=== PATIENT | male | born 1950 | race American Indian/Alaskan Native ===

== ENCOUNTER 2017-04-23 19:27 | Inpatient (IN) | payer MEDICARE ==
--- NOTE | 2017-04-23 21:06 | XRay Report ---
FINAL REPORT PROCEDURE: XR CHEST 1V AP TECHNIQUE: Chest radiograph anteroposterior view. CPT 07890 HISTORY: Shortness of breath COMPARISON: No prior studies are available for comparison. FINDINGS: Heart: Normal. Mediastinum/Vessels: Normal contour. Lungs/Pleural space: No infiltrate, effusion, or pneumothorax. Bony thorax: No acute osseous abnormality. Life support devices: None. IMPRESSION: No radiographic evidence of acute cardiopulmonary abnormality.
[2017-04-23 21:08] LABS: Basophils % (Auto) 1.1 % (0.0-1.8); Eosinophils % (Auto) 1.3 % (0.0-4.3); Hemoglobin 12.3 gm/dl (11.8-15.2); Mean Corpuscular HGB Conc 33 % (32-34); Mean Corpuscular Hemoglobin 28 pg (28-32); Mean Corpuscular Volume 87 fl (84-94); Platelet Count 256 K/mm3 (140-440); Red Blood Count 4.35 M/mm3 (3.65-5.03); Red Cell Distribution Width 14.8 % (13.2-15.2)
[2017-04-23 21:18] LABS: Anion Gap 18 mmol/L; BUN/Creatinine Ratio 12; Blood Urea Nitrogen 16 mg/dL (9-20); Calcium 8.6 mg/dL (8.4-10.2); Carbon Dioxide 25 mmol/L (22-30); Chloride 105.8 mmol/L (98-107); Glucose 139 mg/dL (75-100); Potassium 4.4 mmol/L (3.6-5.0); Sodium 144 mmol/L (137-145)
[2017-04-23] MEDS ORDERED: LEVAQUIN 750MG/150ML 750 MG/150 ML BAG IV ONE (21:28)
[2017-04-23] MEDS ORDERED: CLEOCIN 600 MG/50 mL 600 MG/50 ML BAG IV ONE (21:30)
--- NOTE | 2017-04-23 21:38 | Emergency Department Report ---
ED Shortness of Breath HPI - General Chief Complaint: Dyspnea/Respdistress Stated Complaint: BRAN Time Seen by Provider: 04/23/17 21:21 Source: EMS Mode of arrival: Stretcher Limitations: Language Barrier (aphasic), Physical Limitation - History of Present Illness Initial Comments: 66 yo male s/p ccva and is aphasic on puree diet found choking on a hot dog at the snf. long term suctioned 300ml of fluid from oralpharynx and ems suctioned him as well. about 100cc suctioned her my nurse at this hospital MD Complaint: shortness of breath, cough (pt was choking) -: Sudden Pain Scale: 0 Known History Of: diabetes - Related Data Home Oxygen Therapy: No Home Oxygen Amount: other (none) Previous Rx's Medication Instructions Recorded Last Taken Type Aspirin [Aspirin BABY CHEW TAB] 81 mg PO QDAY #30 tab.chew 01/22/16 Unknown Rx AtorvaSTATin [Lipitor] 10 mg PO QHS #30 tablet 01/22/16 Unknown Rx Ergocalciferol [Vitamin D2] 50,000 unit PO QWEEK #7 capsule 01/22/16 Unknown Rx amLODIPine [Norvasc] 5 mg PO DAILY #30 tablet 01/22/16 Unknown Rx traMADol [Ultram 50 MG tab] 100 mg PO BID #30 tablet 01/22/16 Unknown Rx Allergies Allergy/AdvReac Type Severity Reaction Status Date / Time Penicillins Allergy Hives Verified 01/14/16 14:23 ED Review of Systems ROS: Stated complaint: BRAN Other details as noted in HPI ED Past Medical Hx - Past Medical History Hx Hypertension: Yes Hx CVA: Yes (right sided paralysis) Hx Diabetes: Yes Hx Psychiatric Treatment: Yes (Schizophrenia, anxiety,) Additional medical history: Glaucoma,Anemia, - Surgical History Additional Surgical History: L arm, - Social History Smoking Status: Never Smoker Substance Use Type: None - Medications Home Medications: Home Medications Medication Instructions Recorded Confirmed Last Taken Type Aspirin [Aspirin BABY CHEW TAB] 81 mg PO QDAY #30 tab.chew 01/22/16 Unknown Rx AtorvaSTATin [Lipitor] 10 mg PO QHS #30 tablet 01/22/16 Unknown Rx Ergocalciferol [Vitamin D2] 50,000 unit PO QWEEK #7 capsule 01/22/16 Unknown Rx amLODIPine [Norvasc] 5 mg PO DAILY #30 tablet 01/22/16 Unknown Rx traMADol [Ultram 50 MG tab] 100 mg PO BID #30 tablet 01/22/16 Unknown Rx ED Physical Exam - General Limitations: Language Barrier (aphasic), Physical Limitation General appearance: alert, in distress - Head Head exam: Present: atraumatic, normocephalic - Eye Eye exam: Present: EOMI. Absent: scleral icterus, conjunctival injection - ENT ENT exam: Present: mucous membranes moist - Neck Neck exam: Present: normal inspection, full ROM - Respiratory Respiratory exam: Present: decreased breath sounds - Cardiovascular Cardiovascular Exam: Present: regular rate, normal rhythm, normal heart sounds - GI/Abdominal GI/Abdominal exam: Present: soft. Absent: tenderness, guarding, rebound - Rectal Rectal exam: Present: deferred - Extremities Exam Extremities exam: Present: normal inspection - Back Exam Back exam: Present: normal inspection - Neurological Exam Neurological exam: Present: alert - Psychiatric Psychiatric exam: Present: normal affect, normal mood - Skin Skin exam: Present: warm, dry, intact, normal color ED Course Vital Signs 04/23/17 04/23/17 19:46 20:16 Temperature 99.7 F H 99.7 F H Pulse Rate 111 H 95 H Respiratory 20 22 Rate Blood Pressure 144/85 144/86 O2 Sat by Pulse 74 L 96 Oximetry ED Medical Decision Making - Lab Data Result diagrams: 04/23/17 20:44 04/23/17 20:44 - EKG Data EKG shows normal: sinus rhythm, axis, intervals, QRS complexes (LVH) Rate: tachycardia - EKG Data When compared to previous EKG there are: changes noted (TACHYCARDIA) - Radiology Data Radiology results: report reviewed (NO ACUTE CHANGES) Critical Care Time: Yes Critical care time in (mins) excluding proc time.: 30 Critical care attestation.: If time is entered above; I have spent that time in minutes in the direct care of this critically ill patient, excluding procedure time. 30 Critical Care Time: 30MIN ED Disposition Clinical Impression: Acute dyspnea Aspiration pneumonia Qualifiers: Aspiration pneumonia type: due to gastric secretions Laterality: right Lung location: middle lobe of lung Qualified Code(s): J69.0 - Pneumonitis due to inhalation of food and vomit Disposition: OP ADMIT IP TO THIS HOSP Is pt being admited?: Yes Does the pt Need Aspirin: No Condition: Serious Instructions: Bacterial Pneumonia (ED) Referrals: GINETTE PÉREZ MD [Primary Care Provider] - 3-5 Days Time of Disposition: 23:02 (CASE REVIEWED WITH DR LYNN AND HE HAS ACCEPTED THE PT FOR ADMISSION)
--- NOTE | 2017-04-23 22:37 | XRay Report ---
FINAL REPORT PROCEDURE: XR CHEST 1V TECHNIQUE: Chest radiograph lateral view. CPT 99758 HISTORY: sob/lateral view COMPARISON: AP view dated 04/23/2017 FINDINGS: Cross-table lateral view of the chest is submitted. No layering pleural effusion is seen. No pulmonary infiltrates are identified. There is osteopenia. IMPRESSION: No pulmonary infiltrate or effusion is seen.
[2017-04-23 23:51] LABS: ISTAT Base Excess 0; ISTAT HCO3 24.4; ISTAT PCO2 39.3 (35-45); ISTAT PH 7.402 (7.35-7.45); ISTAT PO2 62 (80-105); ISTAT SO2 91; ISTAT TCO2 26
[2017-04-23] MEDS ORDERED: NACL 0.9% 1000 ML 1,000 ML IV ONE (23:52)
[2017-04-23] MEDS ORDERED: TYLENOL PO PRN (23:58)
[2017-04-23] MEDS ORDERED: ZOFRAN IV PRN (23:58)
[2017-04-24 00:15] LABS: Bilirubin,Urine NEG (Negative); Blood,Urine NEG (Negative); Ketones,Urine NEG (Negative); Leukocyte Esterase,Urine NEG (Negative); Mucus,Urine FEW /HPF; Nitrite,Urine NEG (Negative)
[2017-04-24] MEDS ORDERED: TYLENOL PR PRN (00:48)
[2017-04-24] MEDS ORDERED: DULCOLAX PR PRN (00:49)
[2017-04-24] MEDS ORDERED: D50W (25GM) Vial IV PRN (01:37)
--- NOTE | 2017-04-24 02:36 | History and Physical Report ---
CHIEF COMPLAINT: difficulty in breathing. Other complaint includes choking sensation. HISTORY OF PRESENT ILLNESS: The patient is a 66-year-old male who stays at skilled nursing and who was noted by the skilled nursing staff to be choking on a hot dog in the skilled nursing. The staff embarked on suctioning of patient's oropharynx and suctioned out about 300 mL of fluid. EMS was called and also EMS suctioned the patient en route to the hospital. When the patient got to the Emergency Room, the Emergency Room nurse was able to suction out about 100 mL of fluid. There was also no history of cough. No history of fever or chills. There is also no history of chest pain, no history of dizziness. PAST MEDICAL HISTORY: Pertinent for hypertension, cerebrovascular accident with right-sided paralysis, diabetes mellitus, schizophrenia, anxiety, glaucoma, anemia, aphasia. PAST SURGICAL HISTORY: Left arm surgery. FAMILY HISTORY: Noncontributory. SOCIAL HISTORY: The patient stays at a skilled nursing, does not smoke, does not drink alcohol and does not use illicit drugs. MEDICATIONS: The patient is on the following medications: Aspirin, atorvastatin, ergocalciferol or vitamin D2, amlodipine 5 mg by mouth daily, tramadol 100 mg by mouth twice daily. Atorvastatin 10 mg by mouth every night and aspirin 81 mg daily and vitamin D2 50,000 units every week. ALLERGIES: THE PATIENT IS ALLERGIC TO PENICILLIN. REVIEW OF SYSTEMS: CONSTITUTIONAL: There is no fever, no chills, no diaphoresis. HEENT: There is no headache or sore throat. CARDIOVASCULAR: There is no chest pain, orthopnea. RESPIRATORY: Shortness of breath is noted. No Cough is noted. GASTROINTESTINAL: There is no nausea, no vomiting, no abdominal pain, diarrhea or constipation, but there was choking sensation. NEUROLOGICAL SYSTEM: There is no numbness, no dizziness, no altered mental status. MUSCULOSKELETAL SYSTEM: There is no joint pain or swelling. DERMATOLOGICAL SYSTEM: There is no skin rash or itching. GENITOURINARY: There is no dysuria, hematuria, or flank pain. Rest of system review is normal. PHYSICAL EXAMINATION: GENERAL: At the time of exam, the patient was found to be alert, oriented to person and not in acute distress. VITAL SIGNS: Shows normal temperature, pulse of 90, respirations 20, blood pressure 146/87, O2 sat of 96% on oxygen. HEENT: Showed pupils to be equal, round, reactive to light and accommodation. Extraocular muscles are intact. Oral mucosa looks normal. There are no food contents in the mouth. NECK: Supple with no JVD or carotid bruit. CARDIOVASCULAR: Showed normal first and second heart sounds with no gallops or murmur. RESPIRATORY SYSTEM: Show good air entry on both sides of the lung with no abnormal breath sounds. GASTROINTESTINAL SYSTEM: Show abdomen to be full, soft, nontender with no organomegaly or rigidity. NEUROLOGIC: Showed no focal deficit. MUSCULOSKELETAL: Show no joint swelling or tenderness. DERMATOLOGICAL: Show no skin rash. GENITOURINARY: Showing no costovertebral angle tenderness. PERTINENT LABORATORY AND IMAGING STUDIES: The patient has CBC done that came back unremarkable except for elevated segmented neutrophils of 79.4% in the differential. The patient's D-dimer was high with a value of 10,000. ABG shows a normal pH, normal pCO2 with low pO2 of 62 and O2 sat of 91% on FIO2 of 4. The patient's chemistry came back unremarkable except for elevated lactic acid level of 2.2. The patient's urinalysis was unremarkable. IMAGING STUDIES: The patient had chest x-ray done that was unremarkable and showed no acute cardiopulmonary lesion. DIAGNOSES: 1. Aspiration pneumonia. 2. Sepsis. 3. Elevated D-Dimer PLAN: The patient will be admitted to medical floor on telemetry. We will have 1 liter of normal saline given bolus and will have normal saline continued at 150 mL an hour after bolus infusion. The patient will continue IV Levaquin 750 mg daily, having received the first dose and also being allergic to PENICILLIN. The patient will have speech therapy consult to test the patient for swallowing capabilities. The patient will be on heparin 5000 units subcutaneously q. 12 for DVT prophylaxis and will be on Tylenol 650 mg per rectum every 4 hours for fever and headache. The patient will also be on Dulcolax suppository per rectum daily as needed for constipation. The patient will continue on clindamycin 600 mg IV q. 12 hours for the treatment of food for gram-negative organisms in the aspiration pneumonia. The patient will be on IV Zofran 4 mg every 8 hours for nausea and vomiting and will continue his home medications as shown in the medication reconciliation section. The patient wants to be on oxygen by nasal cannula 2 liters per minute, which will be better titrated to keep O2 sat above 92%.Patient will have CT angiogram of chest done this morning because of elevated D-Dimer with shortness of breath. JOB# [id number] OCN/ANTHONY SILVESTRE
[2017-04-24] MEDS: NACL 0.9% 1000 ML 1,000 ML IV SCH ×2 (04:53→16:46)
[2017-04-24] MEDS ORDERED: NACL ONE (06:19)
[2017-04-24] MEDS: CLEOCIN 600 MG/50 mL 600 MG/50 ML BAG IV SCH ×3 (06:31→22:54)
[2017-04-24] MEDS ORDERED: VITAMIN D2 PO SCH (10:00)
[2017-04-24] MEDS ORDERED: NORVASC PO SCH (10:00)
[2017-04-24] MEDS ORDERED: BABY ASPIRIN PO SCH (10:00)
[2017-04-24] MEDS ORDERED: ULTRAM PO SCH (10:00)
--- NOTE | 2017-04-24 12:37 | Progress Note ---
Assessment and Plan Assessment and plan: Patient is a 66 yo man with a history of glaucoma, anemia, schizophrenia, hypertension, dyslipidemia, non-insulin diabetes mellitus, CVA with right-sided hemiparesis and aphasia who presented with choking on a hot dog, suctioned 300ml of fluid from oral pharynx and ems suctioned him as well as about 100cc suctioned at this hospital per ED. chest x-ray showed no acute findings. D- dimer greater than 10,000 we'll get a CTA of the chest -Sepsis due to aspiration pneumonitis, poa bilateral chest x-ray too early to apple picker infiltrate: treat with abx -Aspiration pneumonia see above -Dysphagia, OP: Nothing by mouth, modified barium pending if he fails consult GI -Elevated d-dimer: Check CT chest -Acute hypoxic respiratory failure pO2 only 62 even on 4 L oxygen: Continue treated on oxygen and antibiotics, hold off IV fluids until CTA is done -DVT prophylaxis: sq heparin It appears patient is NOT from the skilled nursing as stated in ED records and h-n- p per case management, Jaycee. It appears he was at home with hospice Corey per Jaycee. To clarify, i called Jud at @ 12:45pm pm and no answer. I spoke with at bedside and he was at [facility] temporary for 5 days. She put him in [facility] last for 5 day hold, he was to come home tomorrow. is upset that they gave him a hotdog when she told them he is on pureed diet. At home he is in hospice with Corey. believes the hotdog is still lodge in his throat, so I will consult GI pcp: [facility] History Interval history: Patient seen and examined. Nonverbal. Chart reviewed. No new issues reported to me. Overnight uneventful Hospitalist Physical - Physical exam Narrative exam: GEN: thin frail, bmi 24, NAD, AWAKE, ALERT, nonverbal HEENT: NCAT, EOMI, PERRL, OP Clear NECK: supple, no adenopathy, no thyromegaly, no JVD CVS/HEART: RRR, NORMAL S1S2, NO JVD, pulses present bilaterally CHEST/LUNGS: CTA B, Symmetrical chest expansion, good air entry bilaterally GI/Abdomen: soft, NTND, good bowel sounds, no guarding or rebound /Bladder: no suprapubic tenderness, no CVA or paraspinal tenderness EXT/Skin: no c/c/e, no obvious rash MSK: right arm doesn't move much/strenght is less than 1/5, right leg is 2/5 Neuro: CN 2-12 grossly intact, no new focal deficits Psych: calm - Constitutional Vitals: Temp Pulse Resp BP Pulse Ox 99.4 F 94 H 98 H 161/92 92 04/24/17 05:13 04/24/17 05:13 04/24/17 05:13 04/24/17 05:13 04/24/17 08:28 Results - Labs CBC & Chem 7: 04/23/17 20:44 04/23/17 20:44 Labs: Laboratory Last Values WBC 8.0 K/mm3 (4.5-11.0) 04/23/17 20:44 RBC 4.35 M/mm3 (3.65-5.03) 04/23/17 20:44 Hgb 12.3 gm/dl (11.8-15.2) 04/23/17 20:44 Hct 38.0 % (35.5-45.6) 04/23/17 20:44 MCV 87 fl (84-94) 04/23/17 20:44 MCH 28 pg (28-32) 04/23/17 20:44 MCHC 33 % (32-34) 04/23/17 20:44 RDW 14.8 % (13.2-15.2) 04/23/17 20:44 Plt Count 256 K/mm3 (140-440) 04/23/17 20:44 Lymph % (Auto) 14.8 % (13.4-35.0) 04/23/17 20:44 [place] % (Auto) 3.4 % (0.0-7.3) 04/23/17 20:44 Eos % (Auto) 1.3 % (0.0-4.3) 04/23/17 20:44 Baso % (Auto) 1.1 % (0.0-1.8) 04/23/17 20:44 Lymph # 1.2 K/mm3 (1.2-5.4) 04/23/17 20:44 [place] # 0.3 K/mm3 (0.0-0.8) 04/23/17 20:44 Eos # 0.1 K/mm3 (0.0-0.4) 04/23/17 20:44 Baso # 0.1 K/mm3 (0.0-0.1) 04/23/17 20:44 Seg Neutrophils % 79.4 % (40.0-70.0) H 04/23/17 20:44 Seg Neutrophils # 6.3 K/mm3 (1.8-7.7) 04/23/17 20:44 D-Dimer > 99264 ng/mlDDU (0-234) H 04/23/17 23:14 POC ABG pH 7.402 (7.35-7.45) 04/23/17 23:48 POC ABG pCO2 39.3 (35-45) 04/23/17 23:48 POC ABG pO2 62 (80-105) L 04/23/17 23:48 POC ABG HCO3 24.4 04/23/17 23:48 POC ABG Total CO2 26 04/23/17 23:48 POC ABG O2 Sat 91 04/23/17 23:48 POC ABG Base Excess 0 04/23/17 23:48 FiO2 4 % 04/23/17 23:48 Sodium 144 mmol/L (137-145) 04/23/17 20:44 Potassium 4.4 mmol/L (3.6-5.0) 04/23/17 20:44 Chloride 105.8 mmol/L (98-107) 04/23/17 20:44 Carbon Dioxide 25 mmol/L (22-30) 04/23/17 20:44 Anion Gap 18 mmol/L 04/23/17 20:44 BUN 16 mg/dL (9-20) 04/23/17 20:44 Creatinine 1.3 mg/dL (0.8-1.5) 04/23/17 20:44 Estimated GFR > 60 ml/min 04/23/17 20:44 BUN/Creatinine Ratio 12 % 04/23/17 20:44 Glucose 139 mg/dL (75-100) H 04/23/17 20:44 POC Glucose 166 (70-105) H 04/24/17 07:33 Lactic Acid 2.20 mmol/L (0.7-2.0) H* 04/23/17 21:36 Calcium 8.6 mg/dL (8.4-10.2) 04/23/17 20:44 Troponin T < 0.010 ng/mL (0.00-0.029) 04/23/17 20:44 C-Reactive Protein 0.60 mg/dL (0.00-1.30) 04/23/17 21:36 NT-Pro-B Natriuret Pep 152.3 pg/mL (0-900) 04/23/17 21:36 Urine Color Yellow (Yellow) 04/23/17 23:19 Urine Turbidity Clear (Clear) 04/23/17 23:19 Urine pH 5.0 (5.0-7.0) 04/23/17 23:19 Ur Specific [place] 1.027 (1.003-1.030) 04/23/17 23:19 Urine Protein 100 mg/dl mg/dL (Negative) 04/23/17 23:19 Urine Glucose (UA) Neg mg/dL (Negative) 04/23/17 23:19 Urine Ketones Neg mg/dL (Negative) 04/23/17 23:19 Urine Blood Neg (Negative) 04/23/17 23:19 Urine Nitrite Neg (Negative) 04/23/17 23:19 Urine Bilirubin Neg (Negative) 04/23/17 23:19 Urine Urobilinogen 2.0 mg/dL (<2.0) 04/23/17 23:19 Ur Leukocyte Esterase Neg (Negative) 04/23/17 23:19 Urine WBC (Auto) 1.0 /HPF (0.0-6.0) 04/23/17 23:19 Urine RBC (Auto) 2.0 /HPF (0.0-6.0) 04/23/17 23:19 U Epithel Cells (Auto) < 1.0 /HPF (0-13.0) 04/23/17 23:19 Hyaline Casts 5 /LPF 04/23/17 23:19 Urine Mucus Few /HPF 04/23/17 23:19
[2017-04-24] MEDS: HEPARIN SUB-Q SCH ×2 (14:33→23:43)
[2017-04-24] MEDS ORDERED: XYLOCAINE MPF 2% ONE (16:00)
[2017-04-24] MEDS ORDERED: ROBINUL ONE (16:00)
[2017-04-24] MEDS ORDERED: WATER FOR IRRIG STERILE IR ONE (16:38)
[2017-04-24] MEDS ORDERED: DIPRIVAN 10 MG/ML IV ONE (16:45)
--- NOTE | 2017-04-24 16:45 | Gastroenterology Consultation ---
History of Present Illness - Reason for Consult Consult date: 04/24/17 Food impaction Requesting physician: DENISE PAUL - History of Present Illness The patient is a 66 yo male who was in respite at [facility] (normally at home with Jud under home hospice), who came to the ER from [facility] for a possible aspiration event. He has a hx of CVA and possible dementia, and is on a chronic chopped diet. While he was in respite care for the last 5 days, he apparently ingested a hot dog, and was noted to have coughing and inability to swallow secretions or fluids. He has a pOx of 95% now, but was hypoxic on admit , and there was a concern for aspiration pneumonitis. His WBC is normal, and he is afebrile. He denies nausea and wants to eat. He has no blood in his secretions. Per the , he was impacted on a biscuit about 2 months ago, and had to undergo a disimpaction in the [place] ER. Past History Past Medical History: COPD (on home O2 "PRN" per ), hypertension, stroke, other (Possible schizophrenia per old notes) Past Surgical History: Other (shoulder surgery) Social history: lives with family, smoking (Former smoker, none since CVA). denies: alcohol abuse, prescription drug abuse Family history: no significant family history Medications and Allergies Allergies Allergy/AdvReac Type Severity Reaction Status Date / Time Penicillins Allergy Hives Verified 01/14/16 14:23 Home Medications Medication Instructions Recorded Confirmed Last Taken Type Aspirin [Aspirin BABY CHEW TAB] 81 mg PO QDAY #30 tab.chew 01/22/16 04/24/17 Unknown Rx AtorvaSTATin [Lipitor] 10 mg PO QHS #30 tablet 01/22/16 04/24/17 Unknown Rx Ergocalciferol [Vitamin D2] 50,000 unit PO QWEEK #7 capsule 01/22/16 04/24/17 Unknown Rx amLODIPine [Norvasc] 5 mg PO DAILY #30 tablet 01/22/16 04/24/17 Unknown Rx traMADol [Ultram 50 MG tab] 100 mg PO BID #30 tablet 01/22/16 04/24/17 Unknown Rx Active Meds: Active Medications Acetaminophen (Tylenol) 650 mg MT Q4H PRN PRN Reason: For Pain/Fever/Headache Bisacodyl (Dulcolax) 10 mg MT DAILY PRN PRN Reason: Constipation Ergocalciferol (Vitamin D2) 50,000 unit PO Mo JOVANNI Last Admin: 04/24/17 12:44 Dose: Not Given Heparin Sodium (Porcine) (Heparin) 5,000 unit SUB-Q Q12HR JOVANNI Last Admin: 04/24/17 14:33 Dose: 5,000 unit Levofloxacin/Dextrose (Levaquin 750mg/150ml) 750 mg in 150 mls @ 100 mls/hr IV DAILY@2200 JOVANNI Sodium Chloride (Nacl 0.9% 1000 Ml) 1,000 mls @ 150 mls/hr IV DIRECT JOVANNI Last Admin: 04/24/17 04:53 Dose: 150 mls/hr Clindamycin HCl (Cleocin 600 Mg/50 Ml) 600 mg in 50 mls @ 100 mls/hr IV Q8HR JOVANNI PRN Reason: Protocol Last Admin: 04/24/17 06:31 Dose: 100 mls/hr Ondansetron HCl (Zofran) 4 mg IV Q8H PRN PRN Reason: Nausea And Vomiting Review of Systems - Review of Systems ROS unobtainable: due to mental status Exam - Constitutional Vital Signs: Temp Pulse Resp BP Pulse Ox 99.4 F 94 H 98 H 161/92 92 04/24/17 05:13 04/24/17 05:13 04/24/17 05:13 04/24/17 05:13 04/24/17 08:28 General appearance: mild distress (Mild respiratory discomfort due to secretions /cough) - EENT Eyes: PERRL, EOM intact ENT: hearing intact, clear oral mucosa, poor dentition, no thrush - Neck Neck: supple, normal ROM - Respiratory Respiratory effort: labored (Very minimal increase WOB) Respiratory: bilateral: rhonchi (Mild) - Cardiovascular Rhythm: regular Heart Sounds: Present: S1 & S2 Extremities: no ischemia, No edema - Gastrointestinal General gastrointestinal: Present: soft, non-tender, non-distended - Integumentary Integumentary: Present: clear, warm, dry - Neurologic Neurological: right side weakness, other (Unable to speak, but able to follow appropriate commands) - Labs CBC & Chem 7: 04/23/17 20:44 04/23/17 20:44 Lab Results: Laboratory Results - last 24 hr 04/24/17 04/24/17 07:33 12:30 POC Glucose 166 H 136 H Assessment and Plan - Patient Problems (1) Foreign body alimentary tract Current Visit: Yes Status: Acute Qualifiers: Encounter type: E Plan to address problem: - Possible food impaction in the esophagus per . - See dictated EGD report today. - Discussed anaesthesia with team (CHARLINE LEON) prior to procedure.
--- NOTE | 2017-04-24 16:59 | Anesthesia Consultation ---
Anesthesia Consult and Med Hx Date of service: 04/24/17 - Airway Anesthetic Teeth Evaluation: Edentulous ROM Head & Neck: Adequate Mental/Hyoid Distance: Adequate Mallampati Class: Class II Intubation Access Assessment: Probably Good - Pulmonary Exam CTA: Yes - Cardiac Exam Cardiac Exam: RRR - Pre-Operative Health Status ASA Pre-Surgery Classification: ASA4 Proposed Anesthetic Plan: MAC - Pulmonary Hx Respiratory Symptoms: Yes (sat 96% on 3L NC) Home Oxygen Therapy: No - Cardiovascular System Hx Hypertension: Yes - Central Nervous System CVA: Yes (2 years ago. right sided weakness)
--- NOTE | 2017-04-24 16:59 | Anesthesia Day of Surgery ---
Anesthesia Day of Surgery - Day of Surgery Patient Examined: Yes Patient H&P Reviewed: Yes Patient is NPO: Yes
--- NOTE | 2017-04-24 17:14 | Post Operative Note ---
Pre-op diagnosis: Food Impaction Post-op diagnosis: same Findings: Impacted meat fragment at UES (removed via the mouth with finger) Procedure: EGD with food impaction Anesthesia: MAC Surgeon: NHI MCGILL Estimated blood loss: none Pathology: none Specimen disposition: other (N/A) Condition: stable Disposition: floor (Recs: 1. OK to resume chopped diet. 2. OK to d/c home when O2 sats at baseline and swallowing without issue.)
--- NOTE | 2017-04-24 19:41 | Cat Scan Report ---
FINAL REPORT PROCEDURE: CT ANGIO CHEST TECHNIQUE: Computerized axial tomographic angiography of the chest and pulmonary arteries was performed after the IV injection of iodinated nonionic contrast. The image data was postprocessed using maximum intensity projection (MIP) and 2-dimensional multiplanar reformatted (MPR) techniques. The examination is specifically tailored to the evaluation of the pulmonary arteries per clinical request. HISTORY: Short of breath 786.09, chest pain 786.50, SHORTNESS OF BREATH WITH ELEVATED D-DIMER COMPARISON: Radiograph 04/23/2017 FINDINGS: Heart and pericardium: No pericardial effusion or thickening. Thoracic aorta: There is mild atherosclerotic calcification of the aorta. There is atherosclerotic calcification and plaque of the proximal left subclavian artery. Pulmonary vasculature: Streak artifact obscures right perihilar vessels. No linear intraluminal filling defects are seen to suggest pulmonary emboli. Lymph nodes: No enlarged thoracic lymph nodes. Lungs: There are patchy airspace opacities in the right upper lobe abutting the fissure. Airspace infiltrates are seen in the posterior right middle lobe. Airspace consolidation is seen in bilateral posterior lower lobes. Pleural space: No effusion, thickening, or pneumothorax. Musculoskeletal structures: No significant abnormality. Upper abdominal structures: No significant abnormality. IMPRESSION: No evidence of pulmonary emboli. Bilateral pulmonary airspace opacities are concerning for pneumonia.
--- NOTE | 2017-04-24 20:37 | Operative Report ---
PROCEDURE PERFORMED: Esophagogastroduodenoscopy with food disimpaction. PREOPERATIVE DIAGNOSIS: Food impaction in the esophagus. POSTOPERATIVE DIAGNOSES: Food impaction in the esophagus. ENDOSCOPIST: Mino Workman MD. INSTRUMENT: Chase[employer] video endoscope. MEDICATIONS: MAC anesthesia by Anesthesia Services. COMPLICATIONS: No apparent complications. ESTIMATED BLOOD LOSS: Minimal. SPECIMENS: None. IMPLANTS: None. COMPLICATIONS: None. ASSISTANTS: None. CONDITION AT COMPLETION: Stable. TECHNIQUE: The patient and his were informed of the risks and benefits of the procedure due to the patient's history of a stroke. His signed the informed consent to proceed. He was placed in left lateral decubitus position. The above sedative medications were given. His vital signs remained stable throughout the procedure. The instrument was advanced from the mouth to the upper esophageal sphincter under direct visualization. At that point, the bowel was insufflated and a large meat impaction was encountered with withdrawing of the endoscope. The meat impaction remained in 1 piece and fell into the oral cavity. We then used our hands to remove the meat impaction. The endoscope was then advanced from the mouth to the second portion of the duodenum under direct visualization, the bowel was insufflated, and the endoscope was slowly withdrawn. FINDINGS: 1. Meat impaction at the upper esophageal sphincter, removed through the oral cavity. 2. Otherwise, normal upper gastrointestinal tract except for small hiatal hernia. RECOMMENDATIONS: 1. Okay to resume a chopped meat diet. 2. Okay to discharge home when oxygen saturations were at his baseline and he is swallowing without issue. JOB# [id number] LEE/NTS
[2017-04-24] MEDS: LEVAQUIN 750MG/150ML 750 MG/150 ML BAG IV SCH (22:58)
[2017-04-25] MEDS: CLEOCIN 600 MG/50 mL 600 MG/50 ML BAG IV SCH ×3 (06:22→23:48)
[2017-04-25 07:14] LABS: Hematocrit 28.5 % (35.5-45.6); Hemoglobin 9.9 gm/dl (11.8-15.2); Mean Corpuscular HGB Conc 35 % (32-34); Mean Corpuscular Hemoglobin 30 pg (28-32); Mean Corpuscular Volume 86 fl (84-94); Platelet Count 186 K/mm3 (140-440); Red Blood Count 3.32 M/mm3 (3.65-5.03); Red Cell Distribution Width 14.7 % (13.2-15.2); White Blood Count 9.5 K/mm3 (4.5-11.0)
[2017-04-25 07:33] LABS: Alanine Aminotransferase 15 units/L (7-56); Albumin 2.6 g/dL (3.9-5); Albumin/Globulin Ratio 0.9 %; Alkaline Phosphatase 55 units/L (35-129); Anion Gap 14 mmol/L; BUN/Creatinine Ratio 13; Blood Urea Nitrogen 16 mg/dL (9-20); Carbon Dioxide 25 mmol/L (22-30); Chloride 107.8 mmol/L (98-107); Glucose 85 mg/dL (75-100); Potassium 3.9 mmol/L (3.6-5.0); Sodium 143 mmol/L (137-145); Total Protein 5.5 g/dL (6.3-8.2)
[2017-04-25 07:48] LABS: Calcium 7.9 mg/dL (8.4-10.2)
[2017-04-25] MEDS: PROTONIX PO SCH (10:31)
[2017-04-25] MEDS: HEPARIN SUB-Q SCH (10:32)
--- NOTE | 2017-04-25 14:38 | Fluoroscopy Report ---
MODIFIED BARIUM SWALLOW History: dysphagia. Findings: Video radiography was provided by the radiologist for speech therapy to assess the swallowing mechanism. Please refer to the formal report by speech therapy. Impression: Successful modified barium swallow.
--- NOTE | 2017-04-25 17:45 | Progress Note ---
Assessment and Plan Assessment and plan: Patient is a 66 yo man with a history of glaucoma, anemia, schizophrenia, hypertension, dyslipidemia, non-insulin diabetes mellitus, CVA with right-sided hemiparesis and aphasia who presented with choking on a hot dog, suctioned 300ml of fluid from oral pharynx and ems suctioned him as well as about 100cc suctioned at this hospital per ED. chest x-ray showed no acute findings. D- dimer greater than 10,000 w a CTA of the chest- NEGATIVE FOR PE. 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 -Elevated d-dimer: NEGATIVE CT. WILL CHECK DOPPLER LOWER EXT PATIENT for DVT -Acute hypoxic respiratory failure pO2 only 62 even on 4 L oxygen: Continue treated on oxygen and antibiotics, hold off IV fluids -DVT prophylaxis: sq heparin - Diet tngt TUBE FEEDS. BAROMETRIC SURGEON OF OUR OFFICE pLAN WAS DISCUSSED WITH patient, YOU CAN DO IS TO SET UP FOLLow up. OwG THEIR SOMEONE IS COMING TO GERT HERE History Interval history: Patient seen and examined today, He is non verbal, spouse is at bedside, but patient follows commands. Nursing reports no overnight event. Hospitalist Physical - Constitutional Vitals: Temp Pulse Resp BP Pulse Ox 97.7 F 67 16 132/80 99 04/25/17 16:47 04/25/17 16:47 04/25/17 16:47 04/25/17 16:47 04/25/17 16:47 General appearance: Present: no acute distress, well-nourished - EENT Eyes: Present: PERRL, EOM intact ENT: hearing intact, clear oral mucosa - Neck Neck: Present: supple, normal ROM - Respiratory Respiratory effort: normal Respiratory: bilateral: CTA (poor respirtory effort) - Cardiovascular Heart Sounds: Present: S1 & S2. Absent: systolic murmur - Extremities Extremities: no ischemia, pulses intact, No edema, normal temperature, normal color, abnormal (ROM, PARALYSIS RIGHT SIDE) Peripheral Pulses: within normal limits - Abdominal General gastrointestinal: soft, non-tender, non-distended, normal bowel sounds - Integumentary Integumentary: Present: clear, warm, dry - Psychiatric Psychiatric: appropriate mood/affect - Neurologic Neurologic: other (MOTOR STRENGHT DEMINISHED RIGHT SIDE) - Allied Health Allied health notes reviewed: nursing Results - Labs CBC & Chem 7: 04/25/17 06:54 04/25/17 06:54 Labs: Laboratory Last Values WBC 9.5 K/mm3 (4.5-11.0) 04/25/17 06:54 RBC 3.32 M/mm3 (3.65-5.03) L 04/25/17 06:54 Hgb 9.9 gm/dl (11.8-15.2) L 04/25/17 06:54 Hct 28.5 % (35.5-45.6) L D 04/25/17 06:54 MCV 86 fl (84-94) 04/25/17 06:54 MCH 30 pg (28-32) 04/25/17 06:54 MCHC 35 % (32-34) H 04/25/17 06:54 RDW 14.7 % (13.2-15.2) 04/25/17 06:54 Plt Count 186 K/mm3 (140-440) 04/25/17 06:54 Lymph % (Auto) 14.8 % (13.4-35.0) 04/23/17 20:44 Archer % (Auto) 3.4 % (0.0-7.3) 04/23/17 20:44 Eos % (Auto) 1.3 % (0.0-4.3) 04/23/17 20:44 Baso % (Auto) 1.1 % (0.0-1.8) 04/23/17 20:44 Lymph # 1.2 K/mm3 (1.2-5.4) 04/23/17 20:44 Archer # 0.3 K/mm3 (0.0-0.8) 04/23/17 20:44 Eos # 0.1 K/mm3 (0.0-0.4) 04/23/17 20:44 Baso # 0.1 K/mm3 (0.0-0.1) 04/23/17 20:44 Seg Neutrophils % 79.4 % (40.0-70.0) H 04/23/17 20:44 Seg Neutrophils # 6.3 K/mm3 (1.8-7.7) 04/23/17 20:44 D-Dimer > 78706 ng/mlDDU (0-234) H 04/23/17 23:14 POC ABG pH 7.402 (7.35-7.45) 04/23/17 23:48 POC ABG pCO2 39.3 (35-45) 04/23/17 23:48 POC ABG pO2 62 (80-105) L 04/23/17 23:48 POC ABG HCO3 24.4 04/23/17 23:48 POC ABG Total CO2 26 04/23/17 23:48 POC ABG O2 Sat 91 04/23/17 23:48 POC ABG Base Excess 0 04/23/17 23:48 FiO2 4 % 04/23/17 23:48 Sodium 143 mmol/L (137-145) 04/25/17 06:54 Potassium 3.9 mmol/L (3.6-5.0) 04/25/17 06:54 Chloride 107.8 mmol/L (98-107) H 04/25/17 06:54 Carbon Dioxide 25 mmol/L (22-30) 04/25/17 06:54 Anion Gap 14 mmol/L 04/25/17 06:54 BUN 16 mg/dL (9-20) 04/25/17 06:54 Creatinine 1.2 mg/dL (0.8-1.5) 04/25/17 06:54 Estimated GFR > 60 ml/min 04/25/17 06:54 BUN/Creatinine Ratio 13 % 04/25/17 06:54 Glucose 85 mg/dL (75-100) 04/25/17 06:54 POC Glucose 136 (70-105) H 04/24/17 12:30 Lactic Acid 2.20 mmol/L (0.7-2.0) H* 04/23/17 21:36 Calcium 7.9 mg/dL (8.4-10.2) L 04/25/17 06:54 Total Bilirubin 0.90 mg/dL (0.1-1.2) 04/25/17 06:54 AST 13 units/L (5-40) 04/25/17 06:54 ALT 15 units/L (7-56) 04/25/17 06:54 Alkaline Phosphatase 55 units/L (35-129) 04/25/17 06:54 Troponin T < 0.010 ng/mL (0.00-0.029) 04/23/17 20:44 C-Reactive Protein 0.60 mg/dL (0.00-1.30) 04/23/17 21:36 NT-Pro-B Natriuret Pep 152.3 pg/mL (0-900) 04/23/17 21:36 Total Protein 5.5 g/dL (6.3-8.2) L 04/25/17 06:54 Albumin 2.6 g/dL (3.9-5) L 04/25/17 06:54 Albumin/Globulin Ratio 0.9 % 04/25/17 06:54 Urine Color Yellow (Yellow) 04/23/17 23:19 Urine Turbidity Clear (Clear) 04/23/17 23:19 Urine pH 5.0 (5.0-7.0) 04/23/17 23:19 Ur Specific Jbphh 1.027 (1.003-1.030) 04/23/17 23:19 Urine Protein 100 mg/dl mg/dL (Negative) 04/23/17 23:19 Urine Glucose (UA) Neg mg/dL (Negative) 04/23/17 23:19 Urine Ketones Neg mg/dL (Negative) 04/23/17 23:19 Urine Blood Neg (Negative) 04/23/17 23:19 Urine Nitrite Neg (Negative) 04/23/17 23:19 Urine Bilirubin Neg (Negative) 04/23/17 23:19 Urine Urobilinogen 2.0 mg/dL (<2.0) 04/23/17 23:19 Ur Leukocyte Esterase Neg (Negative) 04/23/17 23:19 Urine WBC (Auto) 1.0 /HPF (0.0-6.0) 04/23/17 23:19 Urine RBC (Auto) 2.0 /HPF (0.0-6.0) 04/23/17 23:19 U Epithel Cells (Auto) < 1.0 /HPF (0-13.0) 04/23/17 23:19 Hyaline Casts 5 /LPF 04/23/17 23:19 Urine Mucus Few /HPF 04/23/17 23:19 - Imaging and Cardiology Chest x-ray: image reviewed (> B/L LOWER EXT PNEUMONIA AND NO EVIDENCE OF PE) Abdominal x-ray: pending
[2017-04-25] MEDS: LEVAQUIN 750MG/150ML 750 MG/150 ML BAG IV SCH (22:22)
[2017-04-25] MEDS ORDERED: LEVAQUIN 750MG/150ML 750 MG/150 ML BAG IV SCH (22:24)
[2017-04-26] MEDS ORDERED: HEPARIN SUB-Q SCH (06:00)
[2017-04-26] MEDS: PROTONIX PO SCH (09:32)
[2017-04-26 12:14] VITALS: BP 135/83
--- NOTE | 2017-04-26 12:54 | Discharge Summary ---
Providers - Providers Date of Admission: 04/23/17 23:51 Attending physician: MARTY MACKEY MD 04/24/17 06:50 Speech Therapy Evaluation and Treat [CONS] Routine Reason For Exam: SWALLOW TEST/PATIENT CHOKED ON HOT DOD AT N/HOME 04/24/17 12:54 Consult to Physician [CONS] Routine Consulting Provider: NHI MCGILL Reason For Exam: retained food/hotdog Place consult to:: gi Notified:: office Phone number called:: [phone] Was contact made?: Yes If yes, spoke with:: natali Time called:: 14:59 Primary care physician: GINETTE PÉREZ Hospitalization Reason for admission: FOOD IMPACTION Condition: Serious Hospital course: Patient is a 66 yo man with a history of glaucoma, anemia, schizophrenia, hypertension, dyslipidemia, non-insulin diabetes mellitus, CVA with right-sided hemiparesis and aphasia who presented with choking on a hot dog, suctioned 300ml of fluid from oral pharynx and ems suctioned him as well as about 100cc suctioned at this hospital per ED. chest x-ray showed no acute findings. D- dimer greater than 10,000 w a CTA of the chest- NEGATIVE FOR PE. SPOKE TO WHO STATES THAT PATIENT HAS HAD DIFFICULTY SWALLOWING AND IS ON PURRED DIET at home with Home hospice. -Sepsis due to aspiration pneumonitis, poa bilateral chest x-ray too early to excelsior picker infiltrate: treat with abx with levaquin for additional 7 days -Aspiration pneumonia see above -Dysphagia, OP with food impaction: Gi input noted. Endscopically removed Food particules lodged in the Eseophagus -Elevated d-dimer: NEGATIVE CT. WILL CHECK DOPPLER LOWER EXT PATIENT for DVT -Acute hypoxic respiratory failure pO2 only 62 even on 4 L oxygen: Continue treated on oxygen and wean outpatient and antibiotics, hold off IV fluids -dM- STABLE -Moderate protein calorie malnutrition: ok with supplements. Disposition: DC-50 TO HOSPICE (HOME) Time spent for discharge: 35 MINS Core Measure Documentation - Palliative Care Palliative Care/ Comfort Measures: Hospice Care - Core Measures Any of the following diagnoses?: none - VTE Discharge Requirements Deep Vein Thrombosis/Pulmonary Embolism Present on Admission: No Exam - Physical Exam Narrative exam: General appearance: Present: no acute distress, temporal wasting - EENT Eyes: Present: PERRL, EOM intact ENT: hearing intact, clear oral mucosa - Neck Neck: Present: supple, normal ROM - Respiratory Respiratory effort: normal Respiratory: bilateral: CTA (poor respiratory effort) - Cardiovascular Heart Sounds: Present: S1 & S2. Absent: systolic murmur - Extremities Extremities: no ischemia, pulses intact, No edema, normal temperature, normal color, abnormal (ROM, PARALYSIS RIGHT SIDE) Peripheral Pulses: within normal limits - Abdominal General gastrointestinal: soft, non-tender, non-distended, normal bowel sounds - Integumentary Integumentary: Present: clear, warm, dry - Psychiatric Psychiatric: appropriate mood/affect - Neurologic Neurologic: other (MOTOR STRENGTH DIMINISHED RIGHT SIDE), non verbal - Allied Health Allied health notes reviewed: nursing - Constitutional Vitals: Temp Pulse Resp BP Pulse Ox 98.4 F 81 20 135/83 95 04/26/17 12:13 04/26/17 12:13 04/26/17 12:13 04/26/17 12:13 04/26/17 12:13 Plan Activity: advance as tolerated, fall precautions Diet: per dietitian instruction, other (purred diabetic diet) Special Instructions: record daily BP diary, record blood sugar diary, home hospice Follow up with: GINETTE PÉREZ MD [Primary Care Provider] - 3-5 Days Prescriptions: Levofloxacin [Levaquin TAB] 750 mg PO Q24H #7 tablet Pantoprazole [Protonix TAB] 40 mg PO QDAY #30 tablet
[2017-04-26] MEDS ORDERED: LEVAQUIN PO SCH (22:00)
== END 2017-04-26 15:37 | disposition hospice, home (50) | DRG 871 ==
LOC: ED 19:27 → 4A 23:51 → CC2 04-25 20:16 → 2B-ACE 04-26 12:51
PROVIDERS: ADMIT Internal Medicine; ATTEND Internal Medicine
PROC: 4A033R1 Measurement of Arterial Saturation, Peripheral, Percutaneous Approach (ICD-10-PCS; 2017-04-23)
PROC: 0DC58ZZ Extirpation of Matter from Esophagus, Via Natural or Artificial Opening Endoscopic (ICD-10-PCS; principal; 2017-04-24)
DX: A41.9 Sepsis, unspecified organism (principal); J69.0 Pneumonitis due to inhalation of food and vomit; J96.01 Acute respiratory failure with hypoxia; I69.351 Hemiplegia and hemiparesis following cerebral infarction affecting right dominant side; Z68.1 Body mass index [BMI] 19.9 or less, adult; E44.0 Moderate protein-calorie malnutrition; T18.128A Food in esophagus causing other injury, initial encounter; F20.9 Schizophrenia, unspecified; F41.9 Anxiety disorder, unspecified; Z51.5 Encounter for palliative care; E11.9 Type 2 diabetes mellitus without complications; I10 Essential (primary) hypertension; X58.XXXA Exposure to other specified factors, initial encounter; H40.9 Unspecified glaucoma; Z79.82 Long term (current) use of aspirin; Z88.0 Allergy status to penicillin; Z79.899 Other long term (current) drug therapy; I69.320 Aphasia following cerebral infarction; Y93.89 Activity, other specified; Y92.098 Other place in other non-institutional residence as the place of occurrence of the external cause; Y99.8 Other external cause status
CPT/HCPCS: 36415; 71010; 71275; 74230; 80048; 80053; 81001; 82140; 82803; 82962; 83880; 84484; 85025; 85027; 85379; 86140; 87040; 93005; 93010; 94760; G8996-GN; G8997-GN; J1644; J1956; J2704; J7030; Q9967